=== PATIENT | male | born 1940 | race Caucasian/White ===

== ENCOUNTER 2018-03-06 10:23 | Emergency (ER) | payer MEDICARE, OTHER ==
--- NOTE | 2018-03-06 10:50 | EDM.PDOC ---
ED HPI GENERAL MEDICAL PROBLEM - General Chief Complaint: Respiratory Problem Stated Complaint: COUGHING Time Seen by Provider: 03/06/18 10:42 Source of Information: Reports: Patient History Limitations: Reports: No Limitations - History of Present Illness INITIAL COMMENTS - FREE TEXT/NARRATIVE: HISTORY AND PHYSICAL: History of present illness: [Gurdeep is a 77-year-old male here for cold symptoms x 6 days. He states he has a sore throat, nasal congestion, sinus pressure, cough. He denies any fevers or chills. He is not a smoker and no history of asthma or COPD. ] Review of systems: As per history of present illness and below otherwise all systems reviewed and negative. Past medical history: As per history of present illness and as reviewed below otherwise noncontributory. Surgical history: As per history of present illness and as reviewed below otherwise noncontributory. Social history: No reported history of drug or alcohol abuse. Family history: As per history of present illness and as reviewed below otherwise noncontributory. Physical exam: General: patient sitting comfortably in no acute distress HEENT: Atraumatic, normocephalic, pupils reactive, negative for conjunctival pallor or scleral icterus, mucous membranes moist, throat clear, neck supple, nontender, trachea midline. Lungs: Clear to auscultation, breath sounds equal bilaterally, chest nontender. Heart: S1S2, regular, negative for clicks, rubs Neuro: Awake, alert, oriented. Cranial nerves II through XII unremarkable. Cerebellum unremarkable. Motor and sensory unremarkable throughout. Exam nonfocal. Notes: Diagnostics: [CBC, CMP Chest x-ray] Therapeutics: [Azithromycin Tessalon perles Ventolin inhaler] Impression: [Acute bronchitis Acute sinusitis] Plan: [#1 Use rescue inhaler and take antibiotic and tessalon perles as directed #2 Follow up with primary care provider #3 Return to emergency department as needed as discussed] Definitive disposition and diagnosis as appropriate pending reevaluation and review of above. Throat Pain Score (Numeric/FACES): 4 - Related Data Allergies Allergy/AdvReac Type Severity Reaction Status Date / Time No Known Allergies Allergy Verified 03/06/18 10:45 Home Meds: Home Meds Aspirin [[place] Aspirin] 81 mg PO DAILY 03/06/18 [History] B12/Levomefolate Calcium/B-6 [Folbic Rf Tablet] 1 each PO DAILY 03/06/18 [ History] Brimonidine Tartrate [Alphagan P 0.1% Ophth Soln] 2 drop EYEBOTH DAILY 03/06/18 [History] Finasteride 5 mg PO DAILY 03/06/18 [History] Gabapentin [Neurontin] 300 mg PO QID 03/06/18 [History] Hydrochlorothiazide 25 mg PO DAILY 03/06/18 [History] Lisinopril 40 mg PO DAILY 03/06/18 [History] [place]-3/DHA/Epa/Fish Oil [[place]-3 Fish Oil 1,000 MG Sfgl] 1,000 mg PO DAILY [History] Omeprazole 20 mg PO DAILY 03/06/18 [History] Timolol [Betimol] 1 drop OP 03/06/18 [History] Triamcinolone Acetonide [Triamcinolone Acetonide 0.1% Crm] 1 applic .XX [History] atorvaSTATin [Lipitor] 80 mg PO BEDTIME 03/06/18 [History] ED ROS GENERAL - Review of Systems Review Of Systems: ROS reveals no pertinent complaints other than HPI. ED EXAM, GENERAL - Physical Exam Exam: See Below (See dictation) Course - Vital Signs Last Recorded V/S: Last Vital Signs Temp 36.4 C 03/06/18 10:45 Pulse 67 03/06/18 10:45 Resp 16 03/06/18 10:45 BP 140/68 03/06/18 10:45 Pulse Ox 95 03/06/18 10:45 - Orders/Labs/Meds Orders: Active Orders 24 hr Category Date Time Status Chest 2V [CR] Stat Exams 03/06/18 10:43 Taken STREP SCRN A RAPID W CULT CONF [RM] Stat Lab 03/06/18 10:50 Ordered Labs: Laboratory Tests 03/06/18 03/06/18 Range/Units 10:50 10:50 WBC 4.13 (4.0-11.0) K/uL RBC 4.56 (4.50-5.90) M/uL Hgb 13.1 (13.0-17.0) g/dL Hct 40.0 (38.0-50.0) % MCV 87.7 (80.0-98.0) fL MCH 28.7 (27.0-32.0) pg MCHC 32.8 (31.0-37.0) g/dL RDW Std Deviation 43.1 (28.0-62.0) fl RDW Coeff of Swathi 14 (11.0-15.0) % Plt Count 139 L (150-400) K/uL MPV 10.20 (7.40-12.00) fL Add Manual Diff YES Neutrophils % (Manual) 61 (48.0-80.0) % Lymphocytes % (Manual) 26 (16.0-40.0) % Monocytes % (Manual) 8 (0.0-15.0) % Eosinophils % (Manual) 5 (0.0-7.0) % Nucleated RBC % 0.0 /100WBC Absolute Seg Neuts 2.5 (1.4-5.7) Lymphocytes # (Manual) 1.1 (0.6-2.4) Monocytes # (Manual) 0.3 (0.0-0.8) Eosinophils # (Manual) 0.2 (0.0-0.7) Nucleated RBCs # 0 K/uL Sodium 140 (136-148) mmol/L Potassium 4.1 (3.5-5.1) mmol/L Chloride 103 (98-107) mmol/L Carbon Dioxide 31.2 (21.0-32.0) mmol/L BUN 18 (7.0-18.0) mg/dL Creatinine 1.6 H (0.8-1.3) mg/dL Est Cr Clr Drug Dosing 36.22 mL/min Estimated GFR (MDRD) 41.9 ml/min Glucose 127 H (74-106) mg/dL Calcium 8.6 (8.5-10.1) mg/dL Total Bilirubin 0.4 (0.2-1.0) mg/dL AST 24 (15-37) IU/L ALT 36 (14-63) IU/L Alkaline Phosphatase 57 (46-116) U/L Total Protein 7.2 (6.4-8.2) g/dL Albumin 3.4 (3.4-5.0) g/dL Globulin 3.8 H (2.0-3.5) g/dL Albumin/Globulin Ratio 0.9 L (1.3-2.8) Departure - Departure Time of Disposition: 11:41 Disposition: Home, Self-Care 01 Condition: Good Clinical Impression: Acute bronchitis, Acute sinusitis - Discharge Information Referrals: PCP,None [Primary Care Provider] - Forms: ED Department Discharge Additional Instructions: The following information is given to patients seen in the emergency department who are being discharged to home. This information is to outline your options for follow-up care. We provide all patients seen in our emergency department with a follow-up referral. The need for follow-up, as well as the timing and circumstances, are variable depending upon the specifics of your emergency department visit. If you don't have a primary care physician on staff, we will provide you with a referral. We always advise you to contact your personal physician following an emergency department visit to inform them of the circumstance of the visit and for follow-up with them and/or the need for any referrals to a consulting specialist. The emergency department will also refer you to a specialist when appropriate. This referral assures that you have the opportunity for follow-up care with a specialist. All of these measure are taken in an effort to provide you with optimal care, which includes your follow-up. Under all circumstances we always encourage you to contact your private physician who remains a resource for coordinating your care. When calling for follow-up care, please make the office aware that this follow-up is from your recent emergency room visit. If for any reason you are refused follow-up, please contact the [facility] at and asked to speak to the emergency department charge nurse. [facility] [address] [place] [phone] #1 Use rescue inhaler and take antibiotic and tessalon perles as directed #2 Follow up with primary care provider #3 Return to emergency department as needed as discussed - My Orders Last 24 Hours: My Active Orders 03/06/18 10:43 Chest 2V [CR] Stat 03/06/18 10:50 STREP SCRN A RAPID W CULT CONF [RM] Stat - Assessment/Plan Last 24 Hours: My Active Orders 03/06/18 10:43 Chest 2V [CR] Stat 03/06/18 10:50 STREP SCRN A RAPID W CULT CONF [RM] Stat
--- NOTE | 2018-03-07 17:28 | CR ---
EXAM DATE: 03/06/18 PATIENT'S AGE: 77 Patient: KENAN BANEGAS Facility: [place] [place] Site . Site : [id number] Study: Vel Chest [id number]/15/2018 11:16:25 AM Ordering Physician: Doctor Guardado Final Report: INDICATION: Pain. Short of breath. Cough. TECHNIQUE: Two-view chest. 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 Heart and mediastinum are normal in size and configuration. Pulmonary vessels are normal. Lungs are clear. No pleural fluid. Degenerative changes of the thoracic spine. IMPRESSION: No acute chest disease. Dictated by Reji Gonzales MD @ Mar 06 2018 11:37AM (Electronic Signature) Report Signed by Proxy. [facility]
== END 2018-03-06 11:55 | disposition home or self-care (01) ==
LOC: MW.ED 10:23
DX: J20.9 Acute bronchitis, unspecified (principal); J01.90 Acute sinusitis, unspecified; Z79.82 Long term (current) use of aspirin
CPT/HCPCS: 36415; 71046; 71046-26; 80053; 85025; 99283